=== PATIENT | male | born 1985 | race American Indian/Alaskan Native ===

== ENCOUNTER 2016-06-17 15:34 | Emergency (ER) | payer SELFPAY ==
[2016-06-17 17:16] LABS: Basophils % (Auto) 0.4 % (0.0-1.8); Hematocrit 43.9 % (35.5-45.6); Hemoglobin 14.1 gm/dl (11.8-15.2); Mean Corpuscular HGB Conc 32 % (32-34); Mean Corpuscular Hemoglobin 27 pg (28-32); Mean Corpuscular Volume 83 fl (84-94); Platelet Count 240 K/mm3 (140-440); Red Blood Count 5.28 M/mm3 (3.65-5.03); Red Cell Distribution Width 13.1 % (13.2-15.2)
[2016-06-17 17:28] LABS: Anion Gap 22 mmol/L; BUN/Creatinine Ratio 8.75; Blood Urea Nitrogen 7 mg/dL (9-20); Calcium 9.7 mg/dL (8.4-10.2); Carbon Dioxide 26 mmol/L (22-30); Glucose 100 mg/dL (75-100); Sodium 140 mmol/L (137-145)
[2016-06-17] MEDS ORDERED: TYLENOL PO ONE (20:50)
[2016-06-17] MEDS ORDERED: HYDROMET PO ONE (20:51)
[2016-06-17] MEDS ORDERED: NACL 0.9% 1000 ML 1,000 ML IV ONE ×2 (20:51→21:24)
--- NOTE | 2016-06-17 20:52 | Emergency Department Report ---
ED General Adult HPI - General Chief complaint: Pain General Stated complaint: FLU SYMPTOMS/MEDS REILL Time Seen by Provider: 06/17/16 20:14 Source: patient, RN notes reviewed Mode of arrival: Ambulatory Limitations: No Limitations - History of Present Illness Initial comments: This is a 31-year-old male. He is previously unknown to me. his primary care doctor is at [facility]. Has a past medical history of hypertension. Takes lisinopril/HCTZ combination. Patient comes to the ER complaining of "flulike symptoms." Symptoms have improved present since Tuesday. He reports sick contacts with similar symptoms. He reports body aches, muscle aches, chest wall pain, coughing, and states "my head feels like it's blown up like a balloon." There is no vomiting or diaphoresis. There is no leg pain. There is no leg swelling. No recent trips greater than 4 hours. No recent hospital admissions. Does not use cocaine. Denies change in exercise tolerance. Reports no relief with [id number] Nicki-Lapaz medication. He also requests refill of his lisinopril HCTZ medication. -: Gradual Location: head, face, mouth, chest, back Quality: aching Consistency: constant Improves with: rest Worsens with: movement Associated Symptoms: chest pain, cough, fever/chills, loss of appetite, weakness - Related Data Home Medications Medication Instructions Recorded Confirmed Last Taken Lisinopril/Hydrochlorothiazide 1 tab PO QDAY 04/29/14 04/29/14 04/08/14 [Zestoretic 20-12.5 mg] Previous Rx's Medication Instructions Recorded Last Taken Type Acetamin/Codeine 120-12Mg/5 ml 5 ml PO TID PRN #10 dose 04/29/14 Unknown Rx [Tylenol/Codeine] Lisinopril [Zestril TAB] 20 mg PO QDAY #30 tablet 04/29/14 Unknown Rx traMADol [Ultram 50 MG tab] 50 mg PO Q6HR PRN #20 tablet 11/16/14 Unknown Rx Albuterol Sulfate [Proair 90 mcg IH Q4HR PRN #2 aer.pow.ba 06/17/16 Unknown Rx Respiclick] Benzonatate [Tessalon Perles] 100 mg PO Q8HR PRN #30 capsule 06/17/16 Unknown Rx Fluticasone [Flonase] 1 spray NS QDAY #1 bottle 06/17/16 Unknown Rx Lisinopril/Hydrochlorothiazide 1 each PO QDAY #30 tablet 06/17/16 Unknown Rx [Zestoretic 20-12.5 mg] Allergies Allergy/AdvReac Type Severity Reaction Status Date / Time aspirin Allergy Itching Verified 04/29/14 07:40 ED Review of Systems ROS: Stated complaint: FLU SYMPTOMS/MEDS REILL Other details as noted in HPI Constitutional: malaise Eyes: denies: eye discharge ENT: congestion Respiratory: cough Cardiovascular: as per HPI Gastrointestinal: denies: abdominal pain Genitourinary: as per HPI Musculoskeletal: arthralgia, myalgia Skin: denies: lesions Neurological: weakness Psychiatric: anxiety ED Past Medical Hx - Past Medical History Previous Medical History?: Yes Hx Hypertension: Yes - Surgical History Past Surgical History?: No - Social History Smoking Status: Never Smoker Substance Use Type: Alcohol - Medications Home Medications: Home Medications Medication Instructions Recorded Confirmed Last Taken Type Acetamin/Codeine 120-12Mg/5 ml 5 ml PO TID PRN #10 dose 04/29/14 Unknown Rx [Tylenol/Codeine] Lisinopril [Zestril TAB] 20 mg PO QDAY #30 tablet 04/29/14 Unknown Rx Lisinopril/Hydrochlorothiazide 1 tab PO QDAY 04/29/14 04/29/14 04/08/14 History [Zestoretic 20-12.5 mg] traMADol [Ultram 50 MG tab] 50 mg PO Q6HR PRN #20 tablet 11/16/14 Unknown Rx Albuterol Sulfate [Proair 90 mcg IH Q4HR PRN #2 aer.pow.ba 06/17/16 Unknown Rx Respiclick] Benzonatate [Tessalon Perles] 100 mg PO Q8HR PRN #30 capsule 06/17/16 Unknown Rx Fluticasone [Flonase] 1 spray NS QDAY #1 bottle 06/17/16 Unknown Rx Lisinopril/Hydrochlorothiazide 1 each PO QDAY #30 tablet 06/17/16 Unknown Rx [Zestoretic 20-12.5 mg] ED Physical Exam - General Limitations: No Limitations General appearance: alert, in no apparent distress - Head Head exam: Present: atraumatic, normocephalic - Eye Eye exam: Present: normal appearance, EOMI. Absent: nystagmus - ENT ENT exam: Present: normal exam, normal orophraynx, mucous membranes moist, TM's normal bilaterally, normal external ear exam - Neck Neck exam: Present: normal inspection, full ROM. Absent: tenderness, meningismus - Respiratory Respiratory exam: Present: normal lung sounds bilaterally, chest wall tenderness. Absent: respiratory distress, wheezes, rales, rhonchi, stridor - Cardiovascular Cardiovascular Exam: Present: normal rhythm, tachycardia, normal heart sounds. Absent: bradycardia, irregular rhythm, systolic murmur, diastolic murmur, rubs, gallop - GI/Abdominal GI/Abdominal exam: Present: soft, normal bowel sounds. Absent: distended, tenderness, guarding, rebound, rigid, pulsatile mass - Rectal Rectal exam: Present: deferred - Extremities Exam Extremities exam: Present: normal inspection, full ROM, normal capillary refill. Absent: tenderness, pedal edema, joint swelling, calf tenderness - Back Exam Back exam: Present: normal inspection, full ROM. Absent: tenderness, CVA tenderness (R), CVA tenderness (L), muscle spasm, paraspinal tenderness, vertebral tenderness - Neurological Exam Neurological exam: Present: alert, oriented X3, normal gait, other (Extraocular movements intact. Tongue midline. No facial droop. Facial sensation intact to light touch in the V1, V2, V3 distribution bilaterally. 5 and 5 strength in 4 extremities.. Sensation is intact to light touch in 4 extremities.). Absent : motor sensory deficit - Psychiatric Psychiatric exam: Present: normal affect, normal mood - Skin Skin exam: Present: warm, dry, intact, normal color. Absent: rash ED Course Vital Signs 06/17/16 06/17/16 06/17/16 15:55 21:05 23:20 Temperature 97.7 F 99.4 F Pulse Rate 95 H 111 H 93 H Respiratory 20 16 Rate Blood Pressure 153/107 Blood Pressure 173/102 139/83 [Right] O2 Sat by Pulse 96 96 98 Oximetry - Reevaluation(s) Reevaluation #1: 06/17/16 21:30 Differential diagnosis: Influenza, influenza-like illness, elevated blood pressure, medication refill, costochondritis, pneumonia, acute coronary syndrome , myocarditis, pericarditis, pleuritis Assessment and plan: 31-year-old male with greater than 72 hours of influenza- like illness syndrome with positive sick contacts with similar symptoms. Given that symptoms have been present for greater than 72 hours, not a Tamiflu candidate, and there is no utility and testing for flu A/B. There are no pulmonary embolus or DVT risk factors, he is low risk by well's criteria, he is low risk by RAFA score, and he is low risk by heart score. His physical examination is unremarkable with the exception of mild low-grade temperature, and tachycardia. He reports nonspecific allergy/intolerance to NSAIDs. He will be given IV fluids, acetaminophen. Laboratory studies were unremarkable. Symptoms have been present for days. Given lack of profound tachycardia, negative troponin, I think myocarditis and pericarditis are very unlikely. Reevaluation #2: 06/17/16 22:04 feels improved. Tachycardia resolved. Patient will be discharged. Educated to follow up with primary care cardiology for elevated blood pressure and cardiac megaly demonstrated on x-ray. ED Medical Decision Making - Lab Data Result diagrams: 06/17/16 16:39 06/17/16 16:39 Vital Signs 06/17/16 15:55 Temperature 97.7 F Pulse Rate 95 H Blood Pressure 153/107 O2 Sat by Pulse 96 Oximetry Lab Results 06/17/16 06/17/16 06/17/16 Range/Units 16:39 16:39 19:25 WBC 8.0 (4.5-11.0) K/mm3 RBC 5.28 H (3.65-5.03) M/mm3 Hgb 14.1 (11.8-15.2) gm/dl Hct 43.9 (35.5-45.6) % MCV 83 L (84-94) fl MCH 27 L (28-32) pg MCHC 32 (32-34) % RDW 13.1 L (13.2-15.2) % Plt Count 240 (140-440) K/mm3 Lymph % (Auto) 10.6 L (13.4-35.0) % [place] % (Auto) 15.5 H (0.0-7.3) % Eos % (Auto) 2.0 (0.0-4.3) % Baso % (Auto) 0.4 (0.0-1.8) % Lymph # 0.8 L (1.2-5.4) K/mm3 [place] # 1.2 H (0.0-0.8) K/mm3 Eos # 0.2 (0.0-0.4) K/mm3 Baso # 0.0 (0.0-0.1) K/mm3 Seg Neutrophils % 71.5 H (40.0-70.0) % Seg Neutrophils # 5.7 (1.8-7.7) K/mm3 Sodium 140 (137-145) mmol/L Potassium 4.0 (3.6-5.0) mmol/L Chloride 96.0 L (98-107) mmol/L Carbon Dioxide 26 (22-30) mmol/L Anion Gap 22 mmol/L BUN 7 L (9-20) mg/dL Creatinine 0.8 (0.8-1.5) mg/dL Estimated GFR > 60 ml/min BUN/Creatinine Ratio 8.75 % Glucose 100 (75-100) mg/dL Calcium 9.7 (8.4-10.2) mg/dL Total Creatine Kinase (55-170) units/L Troponin T < 0.010 < 0.010 (0.00-0.029) ng/mL 06/17/16 Range/Units 19:25 WBC (4.5-11.0) K/mm3 RBC (3.65-5.03) M/mm3 Hgb (11.8-15.2) gm/dl Hct (35.5-45.6) % MCV (84-94) fl MCH (28-32) pg MCHC (32-34) % RDW (13.2-15.2) % Plt Count (140-440) K/mm3 Lymph % (Auto) (13.4-35.0) % [place] % (Auto) (0.0-7.3) % Eos % (Auto) (0.0-4.3) % Baso % (Auto) (0.0-1.8) % Lymph # (1.2-5.4) K/mm3 [place] # (0.0-0.8) K/mm3 Eos # (0.0-0.4) K/mm3 Baso # (0.0-0.1) K/mm3 Seg Neutrophils % (40.0-70.0) % Seg Neutrophils # (1.8-7.7) K/mm3 Sodium (137-145) mmol/L Potassium (3.6-5.0) mmol/L Chloride (98-107) mmol/L Carbon Dioxide (22-30) mmol/L Anion Gap mmol/L BUN (9-20) mg/dL Creatinine (0.8-1.5) mg/dL Estimated GFR ml/min BUN/Creatinine Ratio % Glucose (75-100) mg/dL Calcium (8.4-10.2) mg/dL Total Creatine Kinase 179 H (55-170) units/L Troponin T (0.00-0.029) ng/mL - EKG Data 06/17/16 21:32 normal sinus, 95 bpm, normal intervals, normal axis, poor R progression, not morphologically consistent with STEMI, appears unchanged from prior EKG from 2009. - Radiology Data Radiology results: image reviewed interpreted by me: X-ray chest demonstrates cardiomegaly. No acute disease. Not consistent with CHF. Critical care attestation.: If time is entered above; I have spent that time in minutes in the direct care of this critically ill patient, excluding procedure time. ED Disposition Clinical Impression: Influenza-like illness Disposition: DISCHARGED TO HOME OR SELFCARE Is pt being admited?: No Does the pt Need Aspirin: No Condition: Stable Additional Instructions: Laboratory studies were unremarkable. Chest x-ray demonstrated slightly enlarged cardiac silhouette. Blood pressure was noted to be slightly elevated. Take a breathing medication, cough medication as directed. Take a blood pressure medication as directed. Follow-up with the primary care doctor or herbologist within the next week. Long-term complications of hypertension/ elevated blood pressure and stroke, heart attack, disability, , paralysis, loss of quality of life. Mixture and to wash her hands before and after handling food, before and after contacting family members. Return to the ER right away with fevers or chills, chest pain or shortness of breath, intractable nausea or vomiting, inability to tolerate liquid feeds. Prescriptions: Albuterol Sulfate [Proair Respiclick] 90 mcg IH Q4HR PRN #2 aer.pow.ba PRN Reason: Wheezing Benzonatate [Tessalon Perles] 100 mg PO Q8HR PRN #30 capsule PRN Reason: Cough Fluticasone [Flonase] 1 spray NS QDAY #1 bottle Lisinopril/Hydrochlorothiazide [Zestoretic 20-12.5 mg] 1 each PO QDAY #30 tablet Referrals: PRIMARY CARE, [Primary Care Provider] - 3-5 Days KATHERINE BLACKWELL MD [Staff Physician] - 3-5 Days JOSE HOPKINS MD [Staff Physician] - 3-5 Days THEODORE WILDE MD [Staff Physician] - 3-5 Days Forms: Work/School Release Form(ED)
--- NOTE | 2016-06-17 21:50 | XRay Report ---
FINAL REPORT EXAM: XR CHEST ROUTINE 2V HISTORY: cp cough influenza like illness TECHNIQUE: Chest two views PA and lateral PRIORS: None. FINDINGS: There is poor depth of inspiration. Cardiac silhouette is prominent size suspicious for cardiomegaly. No focal pulmonary infiltrate identified. No pleural fluid collection seen. The pulmonary vasculature is unremarkable. IMPRESSION: Mild cardiomegaly Poor depth of inspiration No acute pulmonary findings
[2016-06-17 23:29] VITALS: BP 139/83
== END 2016-06-17 23:20 | disposition home or self-care (01) ==
LOC: ED 15:34
DX: J11.1 Influenza due to unidentified influenza virus with other respiratory manifestations (principal); I10 Essential (primary) hypertension
CPT/HCPCS: 36415; 71020; 80048; 82550; 84484; 85025; 93005; 93010; 96360; 96361; 99285; J7030

== ENCOUNTER 2017-01-16 17:45 | Emergency (ER) | payer SELFPAY ==
[2017-01-16] MEDS ORDERED: NORCO 7.5/325 PO ONE (20:30)
[2017-01-16] MEDS ORDERED: TORADOL IM ONE (20:30)
[2017-01-16] MEDS ORDERED: ULTRAM PO ONE (20:46)
[2017-01-16 22:06] VITALS: BP 166/91
--- NOTE | 2017-01-16 23:54 | Emergency Department Report ---
Entered by MARTIR DYER, acting as scribe for NARAYAN LLANES PA. ED Lower Extremity HPI - General Chief Complaint: Extremity Injury, Lower Stated Complaint: LEFT SIDE LEG PAIN Time Seen by Provider: 01/16/17 20:14 Source: patient Mode of arrival: Wheelchair Limitations: No Limitations - History of Present Illness Initial Comments: 31 y/o male presents to the ED c/o left leg pain x 1 day. Denies numbness, tingling, fever, chills, nausea and vomiting. Pain is described as 10/10 on a severity scale. Patient states pain started after he attempted to move some furniture. States he was seen at [facility] yesterday and diagnosed with a muscle strain. Denies hx of blood clots, injury, recent travel or surgeries. Noncompliant with blood pressure meds. No alleviating factors despite taking Flexeril and worse with weight bearing. Allergic to aspirin. No significant PMHx or PSHx. patient was observed by myself and enforcement safety officer Sarah to be walking to restroom with normal gait but began to walk with a limp once mid level provider walked into room to examine patient. MD Complaint: other (left leg pain) Onset/Timin -: days(s) Injury: Knee: Left Place: home Severity: severe Severity scale (0 -10): 10 Improves With: nothing Worsens With: weight bearing Context: walking, other (moving furniture) Associated Symptoms: ambulatory. denies: swelling, numbness, tingling, unable to bear weight, able to partially bear weight - Related Data Home Medications Medication Instructions Recorded Confirmed Last Taken Lisinopril/Hydrochlorothiazide 1 tab PO QDAY 04/29/14 04/29/14 04/08/14 [Zestoretic 20-12.5 mg] Previous Rx's Medication Instructions Recorded Last Taken Type Acetamin/Codeine 120-12Mg/5 ml 5 ml PO TID PRN #10 dose 04/29/14 Unknown Rx [Tylenol/Codeine] Lisinopril [Zestril TAB] 20 mg PO QDAY #30 tablet 04/29/14 Unknown Rx traMADol [Ultram 50 MG tab] 50 mg PO Q6HR PRN #20 tablet 11/16/14 Unknown Rx Albuterol Sulfate [Proair 90 mcg IH Q4HR PRN #2 aer.pow.ba 06/17/16 Unknown Rx Respiclick] Benzonatate [Tessalon Perles] 100 mg PO Q8HR PRN #30 capsule 06/17/16 Unknown Rx Fluticasone [Flonase] 1 spray NS QDAY #1 bottle 06/17/16 Unknown Rx Lisinopril/Hydrochlorothiazide 1 each PO QDAY #30 tablet 06/17/16 Unknown Rx [Zestoretic 20-12.5 mg] Ibuprofen [Motrin] 800 mg PO Q8HR PRN #21 tablet 01/16/17 Unknown Rx Lisinopril/Hydrochlorothiazide 1 tab PO QDAY #30 tab 01/16/17 Unknown Rx [Zestoretic 20-12.5 mg] methOCARBAMOL [Robaxin TAB] 500 mg PO TID #21 tab 01/16/17 Unknown Rx Allergies Allergy/AdvReac Type Severity Reaction Status Date / Time acetaminophen [From Tylenol] Allergy Itching Verified 01/16/17 20:45 aspirin Allergy Itching Verified 04/29/14 07:40 ED Review of Systems Comment: All other systems reviewed and negative Constitutional: denies: chills, fever Eyes: denies: eye pain, eye discharge, vision change ENT: denies: ear pain, throat pain Respiratory: denies: cough, shortness of breath, wheezing Cardiovascular: denies: chest pain, palpitations Endocrine: no symptoms reported Gastrointestinal: denies: nausea, vomiting Genitourinary: denies: urgency, dysuria Musculoskeletal: arthralgia. denies: back pain Skin: denies: rash, lesions Neurological: denies: headache, weakness, numbness, paresthesias, confusion, abnormal gait, vertigo Psychiatric: denies: anxiety, depression Hematological/Lymphatic: denies: easy bleeding, easy bruising ED Past Medical Hx - Past Medical History Hx Hypertension: Yes - Surgical History Past Surgical History?: No - Social History Smoking Status: Never Smoker Substance Use Type: Alcohol - Medications Home Medications: Home Medications Medication Instructions Recorded Confirmed Last Taken Type Acetamin/Codeine 120-12Mg/5 ml 5 ml PO TID PRN #10 dose 04/29/14 Unknown Rx [Tylenol/Codeine] Lisinopril [Zestril TAB] 20 mg PO QDAY #30 tablet 04/29/14 Unknown Rx Lisinopril/Hydrochlorothiazide 1 tab PO QDAY 04/29/14 04/29/14 04/08/14 History [Zestoretic 20-12.5 mg] traMADol [Ultram 50 MG tab] 50 mg PO Q6HR PRN #20 tablet 11/16/14 Unknown Rx Albuterol Sulfate [Proair 90 mcg IH Q4HR PRN #2 aer.pow.ba 06/17/16 Unknown Rx Respiclick] Benzonatate [Tessalon Perles] 100 mg PO Q8HR PRN #30 capsule 06/17/16 Unknown Rx Fluticasone [Flonase] 1 spray NS QDAY #1 bottle 06/17/16 Unknown Rx Lisinopril/Hydrochlorothiazide 1 each PO QDAY #30 tablet 06/17/16 Unknown Rx [Zestoretic 20-12.5 mg] Ibuprofen [Motrin] 800 mg PO Q8HR PRN #21 tablet 01/16/17 Unknown Rx Lisinopril/Hydrochlorothiazide 1 tab PO QDAY #30 tab 01/16/17 Unknown Rx [Zestoretic 20-12.5 mg] methOCARBAMOL [Robaxin TAB] 500 mg PO TID #21 tab 01/16/17 Unknown Rx ED Physical Exam - General Limitations: No Limitations General appearance: alert, in no apparent distress - Head Head exam: Present: atraumatic, normocephalic, normal inspection - Eye Eye exam: Present: normal appearance, PERRL, EOMI Pupils: Present: normal accommodation - ENT ENT exam: Present: normal exam, normal orophraynx, mucous membranes moist, normal external ear exam - Neck Neck exam: Present: normal inspection, full ROM - Respiratory Respiratory exam: Present: normal lung sounds bilaterally. Absent: respiratory distress, wheezes, rales, rhonchi, stridor - Cardiovascular Cardiovascular Exam: Present: regular rate, normal rhythm, normal heart sounds. Absent: bradycardia, tachycardia - GI/Abdominal GI/Abdominal exam: Present: soft, normal bowel sounds. Absent: distended, tenderness, guarding, rebound, rigid - Extremities Exam Extremities exam: Present: normal inspection, full ROM, other (dorsalis pedis pulse 2+). Absent: tenderness, pedal edema, joint swelling, calf tenderness - Expanded Lower Extremity Exam Left Hip exam: Present: normal inspection, full ROM Upper Leg exam: Present: normal inspection, full ROM Knee exam: Present: normal inspection, full ROM. Absent: tenderness, swelling, abrasion, laceration, deformity, dislocation, erythema, effusion Lower Leg exam: Present: normal inspection, full ROM Ankle exam: Present: normal inspection, full ROM Foot/Toe exam: Present: normal inspection, full ROM Neuro vascular tendon exam: Present: no vascular compromise. Absent: pulse deficit Gait: Positive: observed and normal - Back Exam Back exam: Present: normal inspection, full ROM - Neurological Exam Neurological exam: Present: alert, oriented X3, normal gait - Psychiatric Psychiatric exam: Present: normal affect, normal mood - Skin Skin exam: Present: warm, dry, intact, normal color. Absent: rash ED Course Vital Signs 01/16/17 01/16/17 01/16/17 17:58 20:57 22:05 Temperature 98.7 F Pulse Rate 100 H 83 Respiratory 18 18 Rate Blood Pressure 159/113 Blood Pressure 166/91 [Left] O2 Sat by Pulse 98 98 Oximetry ED Lower Extremity MDM - Medical Decision Making 31 year old male presents to ED with left knee pain after moving furniture. patient has no tenderness on exam to palpation and has been observed to have normal gait when he did not realize he was being watched by myself and enforcement safety officer. patient states he needs tramadol. patient will be given muscle relaxants and NSAIDS. patient is stable, neurologically intact and in no acute distress. ED Disposition Clinical Impression: Muscle ache Disposition: DC-01 TO HOME OR SELFCARE Is pt being admited?: No Does the pt Need Aspirin: No Condition: Stable Instructions: Muscle Cramp (ED) Prescriptions: Ibuprofen [Motrin] 800 mg PO Q8HR PRN #21 tablet PRN Reason: Pain Lisinopril/Hydrochlorothiazide [Zestoretic 20-12.5 mg] 1 tab PO QDAY #30 tab methOCARBAMOL [Robaxin TAB] 500 mg PO TID #21 tab Referrals: GANESH BACK MD [Staff Physician] - 3-5 Days CECIL SOW MD [Staff Physician] - 2-3 Days PRIMARY CARE, [Primary Care Provider] - 2-3 Days JAYJAY NAVARRETE MD [Staff Physician] - 2-3 Days Forms: Work/School Release Form(ED) This documentation as recorded by the GOMEZ saeed ELIZABETH,accurately reflects the service I personally performed and the decisions made by ,NARAYAN LLANES PA.
== END 2017-01-16 22:10 | disposition home or self-care (01) ==
LOC: ED 17:45
DX: M79.1 Myalgia (principal); I10 Essential (primary) hypertension; Z88.6 Allergy status to analgesic agent
CPT/HCPCS: 99283; J1885

== ENCOUNTER 2017-10-11 09:58 | Emergency (ER) | payer BC ==
[2017-10-11 11:58] LABS: Hematocrit 48.9 % (35.5-45.6); Hemoglobin 15.7 gm/dl (11.8-15.2); Mean Corpuscular HGB Conc 32 % (32-34); Mean Corpuscular Hemoglobin 27 pg (28-32); Mean Corpuscular Volume 85 fl (84-94); Red Blood Count 5.74 M/mm3 (3.65-5.03); Red Cell Distribution Width 13.1 % (13.2-15.2)
[2017-10-11 12:18] LABS: BUN/Creatinine Ratio 20; Blood Urea Nitrogen 14 mg/dL (9-20); Calcium 9.4 mg/dL (8.4-10.2); Hemolysis Index 60
[2017-10-11 12:32] LABS: Platelet Count 234 K/mm3 (140-440)
[2017-10-11] MEDS ORDERED: ZOFRAN ODT PO ONE (14:27)
--- NOTE | 2017-10-11 14:32 | Emergency Department Report ---
Chief Complaint: Nausea/Vomiting/Diarrhea Stated Complaint: C/O STOMACH VIRUS/ABD PAIN Time Seen by Provider: 10/11/17 14:22 - HPI History of Present Illness: 32-year-old male presents to the emergency department with complaint of nausea and vomiting has been going on for the past 3 days and now recently he has developed some diarrhea. He denies any significant abdominal pain but just with the copious vomiting he has been having. No fever. He says that he recently was hanging out with a cousin who had a stomach virus. Otherwise he has a past medical history of hypertension. He tried some Tums without any relief. He goes to [facility]. No recent travel. - ROS Review of Systems: Positive for nausea, vomiting, diarrhea, abdominal discomfort Negative for chest pain, shortness of breath, fever - Exam Vital Signs: Vital Signs 10/11/17 11:20 Temperature 98.2 F Pulse Rate 89 Respiratory 18 Rate Blood Pressure 126/87 O2 Sat by Pulse 97 Oximetry Physical Exam: Obese habitus. Normal setting heart and lungs to auscultation. Hyperactive bowel sounds. No tenderness to palpation of the abdomen. MSE screening note: Focused history and physical exam performed. Due to findings the following was ordered: Patient's labs have been unremarkable thus far. We will attempt to get a urinalysis to look for ketones and signs of dehydration. He will get Zofran ODT and he will have an oral challenge once the nausea is controlled. ED Medical Decision Making - Lab Data Result diagrams: 10/11/17 11:46 10/11/17 11:46 ED Disposition for MSE Condition: Stable Referrals: PRIMARY CARE, [Primary Care Provider] - 3-5 Days
[2017-10-11 14:34] VITALS: BP 134/88
--- NOTE | 2017-10-11 15:25 | XRay Report ---
ABDOMEN, 2 VIEWS: History: Abdominal pain. Findings: Multiple small air-fluid levels are identified throughout the abdomen. No dilated bowel or free air is identified. No pathologic calcifications. Normal stool in the colon. Impression: Findings consistent with gastroenteritis or a mild diffuse ileus. No acute abdominal findings.
[2017-10-11 15:30] LABS: Bilirubin,Urine NEG (Negative); Blood,Urine SM (Negative); Color,Urine Yellow (Yellow); Mucus,Urine FEW /HPF; Urobilinogen,Urine < 2.0 mg/dL (<2.0)
--- NOTE | 2017-10-11 16:25 | Emergency Department Report ---
HPI - General Chief Complaint: Nausea/Vomiting/Diarrhea Time Seen by Provider: 10/11/17 14:22 - HPI HPI: 32-year-old male presents to the emergency department with complaint of nausea and vomiting has been going on for the past 3 days and now recently he has developed some diarrhea. He denies any significant abdominal pain but just with the copious vomiting he has been having. No fever. He says that he recently was hanging out with a cousin who had a stomach virus. Otherwise he has a past medical history of hypertension. He tried some Tums without any relief. He goes to [facility]. No recent travel. ED Past Medical Hx - Past Medical History Hx Hypertension: Yes - Social History Smoking Status: Current Some Day Smoker Substance Use Type: Alcohol - Medications Home Medications: Home Medications Medication Instructions Recorded Confirmed Last Taken Type Acetamin/Codeine 120-12Mg/5 ml 5 ml PO TID PRN #10 dose 04/29/14 Unknown Rx [Tylenol/Codeine] Lisinopril [Zestril TAB] 20 mg PO QDAY #30 tablet 04/29/14 Unknown Rx Lisinopril/Hydrochlorothiazide 1 tab PO QDAY 04/29/14 04/29/14 04/08/14 History [Zestoretic 20-12.5 mg] traMADol [Ultram 50 MG tab] 50 mg PO Q6HR PRN #20 tablet 11/16/14 Unknown Rx Albuterol Sulfate [Proair 90 mcg IH Q4HR PRN #2 [email or web address] 06/17/16 Unknown Rx Respiclick] Benzonatate [Tessalon Perles] 100 mg PO Q8HR PRN #30 capsule 06/17/16 Unknown Rx Fluticasone [Flonase] 1 spray NS QDAY #1 bottle 06/17/16 Unknown Rx Lisinopril/Hydrochlorothiazide 1 each PO QDAY #30 tablet 06/17/16 Unknown Rx [Zestoretic 20-12.5 mg] Ibuprofen [Motrin] 800 mg PO Q8HR PRN #21 tablet 01/16/17 Unknown Rx Lisinopril/Hydrochlorothiazide 1 tab PO QDAY #30 tab 01/16/17 Unknown Rx [Zestoretic 20-12.5 mg] methOCARBAMOL [Robaxin TAB] 500 mg PO TID #21 tab 01/16/17 Unknown Rx Ondansetron [Zofran Odt] 4 mg PO Q8H PRN #10 tab.rapdis 10/11/17 Unknown Rx ED Review of Systems ROS: Stated complaint: C/O STOMACH VIRUS/ABD PAIN Other details as noted in HPI Comment: All other systems reviewed and negative Constitutional: denies: chills, fever Eyes: denies: eye pain, eye discharge, vision change ENT: denies: ear pain, throat pain Respiratory: denies: cough, shortness of breath, wheezing Cardiovascular: denies: chest pain, palpitations Gastrointestinal: abdominal pain, nausea, vomiting, diarrhea Genitourinary: denies: urgency, dysuria Musculoskeletal: denies: back pain, joint swelling, arthralgia Skin: denies: rash, lesions Neurological: denies: headache, weakness, paresthesias Physical Exam - Physical Exam Vital Signs: Vital Signs 10/11/17 10/11/17 11:20 14:33 Temperature 98.2 F 98.2 F Pulse Rate 89 89 Respiratory 18 18 Rate Blood Pressure 126/87 Blood Pressure 134/88 [Left] O2 Sat by Pulse 97 97 Oximetry Physical Exam: GENERAL: The patient is well-developed well-nourished. HENT: Normocephalic. Atraumatic. Patient has moist mucous membranes. EYES: Extraocular motions are intact. NECK: Supple. Trachea is midline. CHEST/LUNGS: Clear to auscultation. There is no respiratory distress noted. HEART/CARDIOVASCULAR: Regular. There is no tachycardia. There is no murmur. ABDOMEN: Abdomen is soft, nontender. Patient has hyperactive bowel sounds. Obese habitus. SKIN: Skin is warm and dry. NEURO: The patient is awake, alert, and oriented. The patient is cooperative. The patient has no focal neurologic deficits. The patient has normal speech and gait. MUSCULOSKELETAL: There is no tenderness or deformity. There is no limitation range of motion. There is no evidence of acute injury. ED Course Vital Signs 10/11/17 10/11/17 11:20 14:33 Temperature 98.2 F 98.2 F Pulse Rate 89 89 Respiratory 18 18 Rate Blood Pressure 126/87 Blood Pressure 134/88 [Left] O2 Sat by Pulse 97 97 Oximetry ED Medical Decision Making - Lab Data Result diagrams: 10/11/17 11:46 10/11/17 11:46 - Radiology Data Radiology results: image reviewed interpreted by me: Abdominal x-ray shows nonspecific nonobstructive bowel gas. - Medical Decision Making Patient presents with a few days of nausea and vomiting and now it has turned into more diarrhea. Labs are unremarkable. Abdominal x-ray shows nonspecific nonobstructive bowel gas. Vital signs stable throughout his ED course. After a dose of Zofran, the patient was able to pass an oral challenge. He will go home with Zofran ODT and encouraged pickup some type of antidiarrheal. He will increase his oral rehydration and will follow up with a primary care physician. He will return to the ER with any worsening of his symptoms or any acute distress. - Differential Diagnosis gastroenteritis, colitis, food poisoning, C. difficile Critical Care Time: No Critical care attestation.: If time is entered above; I have spent that time in minutes in the direct care of this critically ill patient, excluding procedure time. ED Disposition Clinical Impression: Nausea & vomiting Qualifiers: Vomiting type: unspecified Vomiting Intractability: unspecified Qualified Code( s): R11.2 - Nausea with vomiting, unspecified Diarrhea Qualifiers: Diarrhea type: unspecified type Qualified Code(s): R19.7 - Diarrhea, unspecified Disposition: DC-01 TO HOME OR SELFCARE Is pt being admited?: No Condition: Stable Instructions: Acute Nausea and Vomiting (ED), Acute Diarrhea (ED) Additional Instructions: Please follow up with a primary care physician in the next few days. Increase your oral rehydration. Return to the emergency Department with any worsening of your symptoms or any acute distress. I am prescribing for you a medication for nausea. You can also pepper picker an over- the-counter antidiarrhea medication such as Imodium. Prescriptions: Ondansetron [Zofran Odt] 4 mg PO Q8H PRN #10 tab.rapdis PRN Reason: Nausea Referrals: PRIMARY CARE, [Primary Care Provider] - 3-5 Days GREG BRO JR, MD [Staff Physician] - 3-5 Days [facility] [Outside] - 3-5 Days Forms: Work/School Release Form(ED) Time of Disposition: 16:25
== END 2017-10-11 17:00 | disposition home or self-care (01) ==
LOC: ED 09:58
DX: R11.2 Nausea with vomiting, unspecified (principal); R19.7 Diarrhea, unspecified; I10 Essential (primary) hypertension; F17.200 Nicotine dependence, unspecified, uncomplicated
CPT/HCPCS: 36415; 74019; 80048; 81001; 85027; 99284; Q0162